=== PATIENT | male | born 1995 | race Caucasian/White ===

== ENCOUNTER 2021-01-12 20:10 | Emergency (ER) | payer OTHER ==
[2021-01-12 21:06] LABS: HEMOGLOBIN 15.3 gm/dl (14.0-17.5); RED BLOOD COUNT 4.89 M/UL (4.20-5.50); WHITE BLOOD COUNT 7.9 K/UL (4.5-11.0)
[2021-01-12 21:42] LABS: BUN/CREATININE RATIO 8 (0-10)
== END 2021-01-12 23:43 | disposition home or self-care (01) ==
LOC: ER1 20:10
PROVIDERS: Emergency Medicine
DX: N23 Unspecified renal colic (principal); F17.290 Nicotine dependence, other tobacco product, uncomplicated; Z88.8 Allergy status to other drugs, medicaments and biological substances
CPT/HCPCS: 80053; 81001; 85025; 87086; 99284